=== PATIENT | male | born 1955 | race Caucasian/White ===

== ENCOUNTER 2020-08-05 10:15 | Day surgery (SDC) | payer MEDICAID ==
[~2020-08-05] VITALS: Ht 182.9 cm; Wt 105.3 kg
[2020-08-05] VITALS (12 sets, daily range): BP systolic 100–144; BP diastolic 68–94
[~2020-08-05 10:15] MED LIST: BUPR100T6 PO; FAMO20TA8 PO; HYDR-4353 PO; LISI1TAB51 PO; METO-384 PO; TERA2CAP4 PO
[2020-08-05] MEDS ORDERED: nitroGLYCERIN 0.4mg SUBLingual tab SL PRN ×2 (10:55→13:55)
[2020-08-05] MEDS ORDERED: MESSAGE TO PHARMACY PO ONE (11:00)
[2020-08-05] MEDS ORDERED: insulin Lispro (HumaLOG) vial - multi-dose SQ SCH (11:00)
[2020-08-05] MEDS ORDERED: dextrose 50%-water 50ml dispensing syringe IV PRN ×2 (11:00)
[2020-08-05] MEDS ORDERED: glucagon, human recombinant 1mg kit SUBCUT PRN (11:00)
[2020-08-05] MEDS ORDERED: diphenhydrAMINE 25mg capsule PO PRN (11:00)
[2020-08-05] MEDS ORDERED: normal saline 1,000 ML IV SCH (11:00)
[2020-08-05] MEDS ORDERED: LORazepam 0.5 MG tablet PO PRN (11:00)
[2020-08-05] MEDS ORDERED: dextrose ORAL solution 15 GM/59 ML bottle PO PRN ×2 (11:00)
[2020-08-05] MEDS ORDERED: METF-517 PO (11:22)
[2020-08-05] MEDS ORDERED: [UNRECOGNIZED DRUG - CODE] PO (11:22)
[2020-08-05] MEDS ORDERED: LIDOcaine 1% (10mg/ml)w/preservative injection 20ml MDV ONE (12:05)
[2020-08-05] MEDS ORDERED: fentaNYL/PF 50MCG/1 ML 2ML syringe ONE (12:05)
[2020-08-05] MEDS ORDERED: midazolam 2 mg/2 ml injection ONE (12:05)
[2020-08-05] MEDS ORDERED: iohexol 350 MG/ML 50ML vial IV ONE (12:05)
[2020-08-05] MEDS ORDERED: iohexol 350MG/ML 100ml bottle IV ONE (12:05)
[2020-08-05] MEDS ORDERED: ondansetron/PF 4mg/2ml inj IV PRN (13:50)
[2020-08-05] MEDS ORDERED: OXAZEpam 15mg capsule PO PRN (13:55)
[2020-08-05] MEDS ORDERED: HYDROcodone/acetaminophen 10/325mg tab PO PRN (13:55)
[2020-08-05] MEDS ORDERED: proCHLORperazine 10 MG/2 ml inj IV PRN (13:55)
[2020-08-05] MEDS ORDERED: HYDROcodone/acetaminophen 5mg/325mg tablet PO PRN (13:55)
[2020-08-05] MEDS ORDERED: insulin glargine (Lantus) pen - multi-dose SQ SCH (21:00)
== END 2020-08-05 19:00 | disposition home or self-care (01) ==
LOC: SSTAY O 10:15
PROVIDERS: ATTEND Internal Medicine Cardiovascular Disease
DX: R94.39 Abnormal result of other cardiovascular function study (principal); I25.10 Atherosclerotic heart disease of native coronary artery without angina pectoris; I10 Essential (primary) hypertension; E11.9 Type 2 diabetes mellitus without complications; E78.5 Hyperlipidemia, unspecified; E66.9 Obesity, unspecified; Z68.31 Body mass index [BMI] 31.0-31.9, adult; F17.210 Nicotine dependence, cigarettes, uncomplicated; N40.0 Benign prostatic hyperplasia without lower urinary tract symptoms; K21.9 Gastro-esophageal reflux disease without esophagitis; M54.30 Sciatica, unspecified side; Z79.899 Other long term (current) drug therapy; R06.02 Shortness of breath; Z88.5 Allergy status to narcotic agent; Z86.19 Personal history of other infectious and parasitic diseases
CPT/HCPCS: 36415; 83036; 83880; 93458; 99152; 99153; C1760; C1769; J1644; J2001; J2250; J3010; J7030; Q0163; Q9967; A4620; A6258